=== PATIENT | male | born 1985 | race African-American/Black ===

== ENCOUNTER 2016-12-26 12:38 | Emergency (ER) | payer OTHER ==
[2016-12-26] MEDS ORDERED: TETANUS/DIPHTHERIA/PERTUSSIS 0.5 ML SYRINGE IM ONE ×2 (13:29→13:36)
== END 2016-12-26 14:40 | disposition home or self-care (01) ==
DX: S61.215A Laceration without foreign body of left ring finger without damage to nail, initial encounter (principal); W29.8XXA Contact with other powered hand tools and household machinery, initial encounter; Y99.0 Civilian activity done for income or pay; F17.200 Nicotine dependence, unspecified, uncomplicated